=== PATIENT | female | born 1955 | race Caucasian/White ===

== ENCOUNTER 2019-03-21 07:45 | Outpatient (CLI) | payer OTHER ==
[~2019-03-21 07:45] MED LIST: ANTIVERT25 M1 PO
== END 2019-03-21 07:59 | disposition home or self-care (01) ==
LOC: NUCLEAR 07:45
DX: I25.10 Atherosclerotic heart disease of native coronary artery without angina pectoris (principal)
CPT/HCPCS: 78452; 93017; A9500; J0153

== ENCOUNTER 2023-05-03 09:06 | Outpatient (CLI) | payer OTHER | END 2023-05-03 09:14 | disposition home or self-care (01) | LOC: NUCLEAR 09:06 | PROVIDERS: ATTEND Internal Medicine Cardiovascular Disease | DX: I20.9 Angina pectoris, unspecified (principal); E11.42 Type 2 diabetes mellitus with diabetic polyneuropathy; I11.9 Hypertensive heart disease without heart failure; E78.2 Mixed hyperlipidemia | CPT/HCPCS: 78452; 93017; A9500 ==

== ENCOUNTER 2023-12-22 15:19 | Outpatient (CLI) | payer OTHER | END 2023-12-22 15:22 | disposition home or self-care (01) | LOC: SONOGRAMA 15:19 | PROVIDERS: ATTEND Pathology Anatomic Pathology & Clinical Pathology | DX: D34 Benign neoplasm of thyroid gland (principal); E07.89 Other specified disorders of thyroid; E04.1 Nontoxic single thyroid nodule ==

== ENCOUNTER 2024-01-10 12:36 | Outpatient (CLI) | payer OTHER | END 2024-01-10 12:40 | disposition home or self-care (01) | LOC: NUCLEAR 12:36 | PROVIDERS: ATTEND Internal Medicine Cardiovascular Disease | DX: Z13.820 Encounter for screening for osteoporosis (principal); M81.0 Age-related osteoporosis without current pathological fracture ==

== ENCOUNTER 2024-05-24 20:21 | Emergency (ER) | payer OTHER ==
[~2024-05-24] VITALS: Ht 162.6 cm; Wt 59.0 kg
[2024-05-24] MEDS ORDERED: OMEPRAZOLE MAGN20 MG PO (21:14)
[2024-05-24] MEDS ORDERED: XOPENEX HFA15 GM IH (21:14)
[2024-05-24] MEDS ORDERED: GLIMEPIRIDE4 M1 PO (21:15)
[2024-05-24] MEDS ORDERED: CRESTOR40 MG PO (21:15)
[2024-05-24] MEDS ORDERED: PEPCID AC20 MG (21:15)
[2024-05-24] MEDS ORDERED: GLUMETZA500 MG (21:16)
[2024-05-24] MEDS ORDERED: MONTELUKAST SOD10 MG PO (21:16)
[2024-05-24] MEDS ORDERED: ZETIA10 MG (21:16)
[2024-05-24] MEDS ORDERED: TOPROL XL25 M1 (21:16)
[2024-05-24 21:17] VITALS: BP 110/68; O2SAT 97
[2024-05-24] MEDS ORDERED: SOLIQUA 100 UNIT3 ML SQ (21:17)
[2024-05-24] MEDS ORDERED: ZESTRIL20 MG (21:17)
[2024-05-24] MEDS ORDERED: 0.9 % SODIUM CHLORIDE 1,000 ML IV STA (23:11)
[2024-05-24] MEDS ORDERED: FAMOTIDINE/PF 20 MG/2 ML VIAL IV ONE (23:15)
[2024-05-24] MEDS ORDERED: DICYCLOMINE HCL 20 MG TABLET PO ONE (23:15)
[2024-05-24] MEDS ORDERED: ONDANSETRON HCL 2 MG/ML VIAL IV ONE (23:15)
[2024-05-25] MEDS ORDERED: BISMUTH SUBSALICYLATE 524 MG/30 ML BLIST.PACK PO STA (01:57)
[2024-05-25] MEDS ORDERED: DIPHENOXYLATE HCL/ATROPINE 1 UDTAB TABLET PO STA (01:58)
== END 2024-05-25 02:19 | disposition home or self-care (01) ==
LOC: ER 20:23
DX: R19.7 Diarrhea, unspecified (principal); Z91.013 Allergy to seafood
CPT/HCPCS: 96365; 99282; J2405; J3490; J7030

== ENCOUNTER 2025-06-20 08:31 | Outpatient (CLI) | payer OTHER ==
[~2025-06-20 08:31] MED LIST changes: +CRESTOR40 MG PO; +GLIMEPIRIDE4 M1 PO; +GLUMETZA500 MG; +MONTELUKAST SOD10 MG PO; +OMEPRAZOLE MAGN20 MG PO; +PEPCID AC20 MG; +SOLIQUA 100 UNIT3 ML SQ; +TOPROL XL25 M1; +XOPENEX HFA15 GM IH; +ZESTRIL20 MG; +ZETIA10 MG
== END 2025-06-20 08:43 | disposition home or self-care (01) ==
LOC: RAD 08:31
DX: M25.519 Pain in unspecified shoulder (principal); M54.2 Cervicalgia